=== PATIENT | male | born 1960 | race Two or more races ===

== ENCOUNTER 2020-09-16 09:19 | Inpatient (IN) | payer OTHER ==
[~2020-09-16] VITALS: Ht 167.6 cm; Wt 65.8 kg
--- NOTE | 2020-09-16 09:21 | NUR ---
[email or web address], from home, daughter found him on the floor having seizure, last alcohol drink was yesterday, +oral trauma, to ER bed 13, hooked to fire information officer, BP cuff and POX, changed to hosp gown, warm blanket provided, PATIENT AAO x 3,breathing even and unlabored, NAD noted. Dr Angel at bedside
[2020-09-16] MEDS ORDERED: LORAZEPAM INJ 2 MG/ML VIAL ONE (09:48)
[2020-09-16] MEDS ORDERED: LEVETIRACETAM (500MG) 500 MG in IV NS 0.9% 100 ML IV ONE (10:00)
[2020-09-16] MEDS ORDERED: IV NS 0.9% 1,000 ML BAG IV ONE (10:00)
[2020-09-16] MEDS ORDERED: LORAZEPAM INJ 2 MG/ML VIAL IVP ONE (10:00)
[2020-09-16 10:04] LABS: BASOPHILS % (AUTO) 0.5 % (0.0-2.0); EOSINOPHILS % (AUTO) 0.9 % (0.0-6.0); HEMATOCRIT 40 % (39-51); HEMOGLOBIN 13.3 g/dL (13.5-17.5); LYMPHOCYTES # (AUTO) 0.9 /CMM (0.8-4.8); LYMPHOCYTES % (AUTO) 9.6 % (20.0-44.0); MEAN CORPUSCULAR HGB CONC 34 g/dl (31.0-36.0); MEAN CORPUSCULAR VOLUME 100 fL (80-96); MONOCYTES # (AUTO) 0.6 /CMM (0.1-1.30); MONOCYTES % (AUTO) 6.7 % (2.0-12.0); NEUTROPHILS # (AUTO) 7.9 /CMM (1.8-8.9); NEUTROPHILS % (AUTO) 82.3 % (43.0-81.0); PLATELET COUNT (AUTO) 204 /CMM (150-450); RED BLOOD CELL COUNT(AUTO) 3.97 MIL/uL (4.5-6.0); WHITE BLOOD COUNT (AUTO) 9.6 K/uL (4.3-11.0)
[2020-09-16 10:23] LABS: CALCIUM, SERUM 8.9 mg/dL (8.5-10.1); CREATININE 0.9 mg/dL (0.6-1.3); POTASSIUM 3.9 mmol/L (3.5-5.1)
[2020-09-16 10:30] LABS: ALBUMIN 4.1 g/dL (3.4-5.0); BILIRUBIN,DIRECT 0.3 mg/dL (0.0-0.2); BILIRUBIN,TOTAL 1.1 mg/dL (0.2-1.0); TOTAL PROTEIN, SERUM 8.5 g/dL (6.4-8.2)
--- NOTE | 2020-09-16 11:23 | NUR ---
MOVE SHEET SUBMITTED AND CALLTED FOR TELE BED.
--- NOTE | 2020-09-16 11:45 | NUR ---
pt still unable to provide urine sample at this time. urinal at bedside.
--- NOTE | 2020-09-16 11:46 | NUR ---
Ruth Ann daughter [phone]
--- NOTE | 2020-09-16 12:18 | NUR ---
[facility] CALLED BACK SHOE OPERATOR PAGED.
--- NOTE | 2020-09-16 12:37 | NUR ---
bed 328-1
--- NOTE | 2020-09-16 12:42 | NUR ---
report given to tyree DOTSON for suzan
--- NOTE | 2020-09-16 13:02 | NUR ---
Wheeled patient via gurney accompanied by RN and emt in no distress going to room 328. RN at bedside to assume care.
[2020-09-16 13:15] VITALS: BP 152/80
--- NOTE | 2020-09-16 13:15 | NUR ---
SENIOR ANIMATORNAVAL GUNFIRE SPOTTER NOTE PATIENT ARRIVED BY KARL. PATIENT AMBULATORY TO BED WITH ASSISTANCE. PATIENT IN NO ACUTE DISTRESS. NO SOB NOTED. PATIENT BREATHING IS EVEN AND UNLABORED. PATIENT ON TELE MONITORING READING SINUS RHYTHM HR 80. PATIENT BED ALARM IS ON. PATIENT SAFETY PRECAUTIONS IN PLACE. DIDACTIC PROGRAM IN DIETETICS DIRECTOR PRESENT AND PER PATIENT REFUSES PNEUMONIA AND FLU VACCINES AND USUALLY DOES NOT TAKE VACCINES PER PATIENT. PATIENT BED IS LOCKED AND IN LOWEST POSITION. CALL LIGHT WITHIN REACH. WILL CONTINUE TO MONITOR. JOSEPH BURKETT AWARE OF PATIENT ARRIVAL.
[2020-09-16] MEDS ORDERED: LORAZEPAM INJ 2 MG/ML VIAL IV PRN (13:30)
[2020-09-16] MEDS ORDERED: Z GUARD REMEDY 2 OZ OINT TP PRN (13:30)
[2020-09-16] MEDS ORDERED: ACETAMINOPHEN 325 MG TABLET PO PRN (13:30)
[2020-09-16] MEDS ORDERED: ONDANSETRON HCL/PF 4 MG/2 ML VIAL IVP PRN (13:30)
[2020-09-16 13:50] LABS: BILIRUBIN,URINE NEGATIVE (NEGATIVE); BLOOD, URINE NEGATIVE Ery/uL (NEGATIVE); COLOR,URINE YELLOW (YELLOW); LEUKOCYTE ESTERASE ,URINE NEGATIVE (NEGATIVE); NITRITE, URINE NEGATIVE (NEGATIVE); PROTEIN,URINE NEGATIVE (NEGATIVE); UGLUCOSE NEGATIVE (NEGATIVE); UROBILINOGEN,URINE 0.2 EU/dL (0.2)
[2020-09-16] MEDS: Thiamine 100 MG in IV D5W 50 ML IV SCH (14:13)
[2020-09-16] MEDS: IV D5W 1,000 ML IV PRN (14:13)
[2020-09-16 16:30] VITALS: BP 152/73
--- NOTE | 2020-09-16 19:05 | NUR ---
PIPELINE TECHNICIAN OPENING NOTES RECEIVED PATIENT IN BED AWAKE ALERT AND ORIENTED X4, RESPIRATIONS EVEN AND UNLABORED WITH EQUAL RISE AND FALL OF CHEST, DENIES ANY PAIN OR DISCOMFORT, SEIZURE PRECAUTIONS RENDERED, SAFETY PRECAUTIONS IN PLACE, LOW BED AND LOCKED, ORIENTED TO STAFF AND CALL LIGHT AND KEPT WITHIN REACH, BED ALARM INTACT, NPO STATUS, PATIENT ABLE TO CARRY CONVERSATION, ALL NEEDS ATTENDED AT THIS TIME, WILL CONTINUE TO MONITOR AND ATTEND TO NEEDS.
--- NOTE | 2020-09-16 19:46 | NUR ---
HEALTHCARE MANAGEMENT CONSULTANT NOTE PATIENT IN BED RESTING COMFORTABLY. PATIENT IN NO ACUTE DISTRESS. NO SOB NOTED. PATIENT BREATHING IS EVEN AND UNLABORED. PATIENT ON TELE MONITORING READING SINUS RHYTHM HR 84. PATIENT KEPT CLEAN, DRY, AND COMFORTABLE THROUGHOUT SHIFT. PATIENT BED ALARM IS ON. PATIENT SAFETY PRECAUTIONS IN PLACE. CONTRACT GRAPHIC DESIGNER PRESENT AND PATIENT HAS REFUSED SKIN ASSESSMENT THROUGHOUT SHIFT. EDUCATED RISKS VS BENEFITS. PATIENT BED IS LOCKED AND IN LOWEST POSITION. CALL LIGHT WITHIN REACH. WILL ENDORSE CARE TO PM SHIFT FOR TIANA.
[2020-09-16 20:00] VITALS: BP 160/70
[2020-09-16] MEDS: LEVETIRACETAM (500MG) 500 MG in IV NS 0.9% 100 ML IV SCH (21:04)
[2020-09-17] VITALS: BP 138/81
[2020-09-17 04:00] VITALS: BP 142/70
--- NOTE | 2020-09-17 06:51 | NUR ---
CHARGE ENTRY CLOSING NOTES PATIENT IN BED AWAKE ALERT AND ORIENTED X4, RESPIRATIONS EVEN AND UNLABORED WITH EQUAL RISE AND FALL OF CHEST, DENIES ANY PAIN OR DISCOMFORT, IV SITE TO RIGHT FA #22 G INTACT AND PATENT, DUES MEDS GIVEN ORDERD, PATIENT SLEPT WELL.SEIZURE PRECAUTIONS RENDERED, NO SEIZURE ACTIVITY THIS SHIFT, VS REMAINED WNL.SAFETY PRECAUTIONS IN PLACE, LOW BED AND LOCKED,CALL LIGHT KEPT WITHIN REACH, BED ALARM INTACT, NPO STATUS, PATIENT ABLE TO CARRY CONVERSATION, ALL NEEDS ATTENDED AT THIS TIME, WILL CONTINUE TO MONITOR AND ATTEND TO NEEDS AND ENDORSE TO NEXT SHIFT.
--- NOTE | 2020-09-17 07:30 | NUR ---
RN OPENING NOTE MONGOLIAN SPEAKING TELE PT IN BED AWAKE, A/Ox2, BREATHING ON RA, NO SIGNS OF RESP DISTRESS OR SOB, BREATHING EVEN AND UNLABORED. PT DENIES PAIN OR DISCOMFORT. PT NSR HR 70s. PT USES URINAL AT BEDSIDE. PT HAS RFA #22 WITH IV FLUIDS RUNNING PER MD ORDER. NO SIGNS OF INFILTRATION OR INFECTION. PT TO HAVE SWALLOW EVAL TODAY TO SEE IF WE CAN CHANGE DIET. PT TO HAVE NEURO CONSULT WELL. ALL SAFETY PRECAUTIONS IN PLACE- SR PADDED AND UP x2, BED LOCKED AND IN LOWEST POSITION, BED ALARM ON, CALL LIGHT WITHIN REACH. WILL CONTINUE TO MONITOR
[2020-09-17 07:48] LABS: BASOPHILS % (AUTO) 0.4 % (0.0-2.0); EOSINOPHILS % (AUTO) 2.3 % (0.0-6.0); HEMATOCRIT 38 % (39-51); HEMOGLOBIN 12.8 g/dL (13.5-17.5); LYMPHOCYTES # (AUTO) 1.3 /CMM (0.8-4.8); LYMPHOCYTES % (AUTO) 17.6 % (20.0-44.0); MEAN CORPUSCULAR HGB CONC 34 g/dl (31.0-36.0); MEAN CORPUSCULAR VOLUME 99 fL (80-96); NEUTROPHILS # (AUTO) 4.9 /CMM (1.8-8.9); NEUTROPHILS % (AUTO) 66.7 % (43.0-81.0); PLATELET COUNT (AUTO) 182 /CMM (150-450); RED BLOOD CELL COUNT(AUTO) 3.83 MIL/uL (4.5-6.0); WHITE BLOOD COUNT (AUTO) 7.4 K/uL (4.3-11.0)
[2020-09-17 08:00] VITALS: BP 149/75
[2020-09-17 08:06] LABS: CALCIUM, SERUM 8.6 mg/dL (8.5-10.1); CREATININE 0.6 mg/dL (0.6-1.3); MAGNESIUM 1.6 mg/dL (1.8-2.4); PHOSPHORUS 2.7 mg/dL (2.5-4.9); POTASSIUM 3.6 mmol/L (3.5-5.1)
[2020-09-17 08:17] LABS: THYROID STIMULATING HORMONE 1.025 uIU/mL (0.358-3.74)
[2020-09-17] MEDS: MULTIVITAMINS,THERAGRAN 1 UDTAB TABLET PO SCH ×2 (08:23→08:41)
[2020-09-17] MEDS: FAMOTIDINE/PF INJ 20 MG/2 ML VIAL IV SCH ×2 (08:23→08:41)
--- NOTE | 2020-09-17 10:00 | NUR ---
RN NOTE PER RECONCILING CLERK JOSEPH, OKAY TO CHANGE PT TO CARDIAC DIET
[2020-09-17] MEDS: LEVETIRACETAM (500MG) 500 MG in IV NS 0.9% 100 ML IV SCH ×2 (11:13→22:00)
[2020-09-17] MEDS: IV D5W 1,000 ML IV PRN (11:31)
[2020-09-17 12:00] VITALS: BP 134/75
--- NOTE | 2020-09-17 13:00 | NUR ---
RN NOTE SPOKE TO PT'S DAUGHTER YANETH TO ANSWER QUESTIONS REGARDING PT. ALL QUESTIONS ANSWERED TO PT DAUGHTER'S SATISFACTION
[2020-09-17] MEDS: Thiamine 100 MG in IV D5W 50 ML IV SCH (13:23)
--- NOTE | 2020-09-17 13:30 | NUR ---
RN NOTE NEURO CONSULT DONE BY DR. INIGUEZ
--- NOTE | 2020-09-17 13:36 | NUR ---
House Moving Supervisor consult requested by HAND STEMMER Kyung Chávez for part-time homelessness. Patient is a 59 year-old male. Patient is Setswana speaking and this SW conducted the assessment in Setswana. Patient reports that he lives with his daughter Swati Galindo and her Eugene. Patient informed this SW that he stays with his daughter for some days and other days he is on the street. 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 Patient reports that prior to COVID he was receiving EBT but has not received any for a few months. Patient reports that he has had episodes of seizures in the past while he was living in [place]. Patient reports that he has not been taking medications because he does not have a prescription. Patient denies SI and HI. Patient denies auditory and visual hallucinations. Patient reports alcohol use for several years but patient did not want to elaborate. Patient denies drug and alcohol use. Patient would like to be discharged to self as he would like to return to the streets and living with his daughter. SW assessed community needs regarding this patient. SW offered community resources to this patient and patient accepted. SW had patient sign homeless patient waiver form. Patient was calm and cooperative throughout this assessment. Patient speech was clear. Patient's thought process was clear and concise. SW remains available for all needs regarding this patient. Plan: SW to discuss with interdisciplinary team regarding safe and proper discharge for this patient.
[2020-09-17] MEDS: Magnesium 1GM/D5W 100ML PREMIX 100 ML IV SCH ×2 (14:05→14:52)
[2020-09-17 16:00] VITALS: BP 150/75
--- NOTE | 2020-09-17 19:00 | NUR ---
RN CLOSING NOTE PT RESTING COMFORTABLY IN BED. NO CHANGES IN STATUS TO PT- STABLE. SAFETY PRECAUTIONS IN PLACE- SZ PRECAUTIONS, BED LOCKED AND IN LOWEST POSITION, BED ALARM ON , CALL LIIGHT WITHIN REACH, SR UP AND PADDED x2. WILL ENDORSE TO ONCOMING RN FOR TIANA.
--- NOTE | 2020-09-17 19:50 | NUR ---
FARM IMPLEMENT ENGINE MECHANIC OPENING NOTES RECEIVED PATIENT RESTING IN BED COMFORTABLY; A/OX2, BRAZILIAN SPEAKING; BREATHING EVEN AND UNLABORED; TOLERATING ROOM AIR WELL; NO SOB NOTED; TELE MONITOR READS SINUS RHYTHM 85BPM; R FA # 22 INTACT AND PATENT, TOLERATING IVF WELL; NO S/S OF REDNESS OR INFILTRATION NOTED; SAFETY AND SEIZURE PRECAUTIONS IMPLEMENTED; BED LOCKED IN LOW POSITION; SIDE RAILSX2; CALL LIGHT WITHIN REACH; WILL CONT TO MONITOR
--- NOTE | 2020-09-17 20:30 | NUR ---
GAS PLANT WORKER NOTES PATIENT REFUSED TO OBTAIN VITAL SIGNS; CHARGE NURSE AWARE; WILL CONT TO MONITOR TELE MONITOR READS SINUS RHYTHM 80S
--- NOTE | 2020-09-17 20:55 | NUR ---
MOBILE MARKETING MANAGER NOTES PATIENT VERY AGITATED, ATIVAN GIVEN PER MD ORDER; PATIENT STANDING IN BED; SENIOR CONSTRUCTION MANAGER MD NOTIFIED, PER KINA, HALDOL 2MG IV ONCE AND REPEAT IN 30 MINUTES IT NOT EFFECTIVE; CHARGE NURSE AWARE; HALDOL ADMINISTERED PER MD ORDER; WILL CONT TO MONITOR
[2020-09-17] MEDS ORDERED: HALOPERIDOL LACTATE INJ 5 MG/ML VIAL IM ONE ×2 (22:45→23:30)
[2020-09-18] VITALS: BP 182/88
--- NOTE | 2020-09-18 00:06 | NUR ---
DIRECT MARKETING REPRESENTATIVE NOTES PATIENT STILL AGITATED AND AGGRESSIVE TO STAFF; NURSING VP OF GLOBAL MARKETING MADE AWARE; CHARGE NURSE AWARE; MD NOTIFIED; PER MD, CHANGE ATIVAN 2MG IV Q2HR PRN, ORDERS RECEIVED AND READ BACK; WILL ADMINISTER ATIVAN PER MD ORDER;
[2020-09-18] MEDS ORDERED: LORAZEPAM INJ 2 MG/ML VIAL IV PRN (00:30)
[2020-09-18 04:00] VITALS: BP 156/73
--- NOTE | 2020-09-18 05:20 | NUR ---
WOOD TOOL MAKER NOTES PER EMILEE CASTANON, DLAY FOR SITTER IN AM; CHARGE NURSE AWARE; WILL CONT TO MONITOR
--- NOTE | 2020-09-18 06:31 | NUR ---
PEDIATRIC ACUTE CARE UNIT NURSE CLOSING NOTES PATIENT RESTING IN BED COMFORTABLY; A/OX1-2, CZECH SPEAKING, CONFUSED; BREATHING EVEN AND UNLABORED; TOLERATING ROOM AIR WELL; NO SOB NOTED; TELE MONITOR READS SINUS RHYTHM - SINUS TACHY 115; L FA # 22 INTACT AND PATENT, FLUSHING WELL; NO S/S OF REDNESS OR INFILTRATION NOTED; SAFETY PRECAUTIONS IMPLEMENTED; BED LOCKED IN LOW POSITION; SIDE RAILSX2; CALL LIGHT WITHIN REACH; WILL ENDORSE TIANA TO ONCOMING SHIFT
[2020-09-18 07:34] LABS: BASOPHILS % (AUTO) 0.3 % (0.0-2.0); EOSINOPHILS % (AUTO) 0.1 % (0.0-6.0); HEMATOCRIT 39 % (39-51); HEMOGLOBIN 12.9 g/dL (13.5-17.5); LYMPHOCYTES # (AUTO) 0.9 /CMM (0.8-4.8); LYMPHOCYTES % (AUTO) 5.2 % (20.0-44.0); MEAN CORPUSCULAR HGB CONC 33 g/dl (31.0-36.0); MEAN CORPUSCULAR VOLUME 100 fL (80-96); MONOCYTES # (AUTO) 1.6 /CMM (0.1-1.30); MONOCYTES % (AUTO) 9.8 % (2.0-12.0); NEUTROPHILS # (AUTO) 14.1 /CMM (1.8-8.9); NEUTROPHILS % (AUTO) 84.6 % (43.0-81.0); PLATELET COUNT (AUTO) 190 /CMM (150-450); RED BLOOD CELL COUNT(AUTO) 3.87 MIL/uL (4.5-6.0); WHITE BLOOD COUNT (AUTO) 16.7 K/uL (4.3-11.0)
--- NOTE | 2020-09-18 07:35 | NUR ---
VEHICLE INSPECTOR OPENING NOTES RECEIVED PATIENT AWAKE IN BED WITH 1:1 SITTER AT BEDSIDE. HOB ELEVATED. A/OX2, OCCITAN SPEAKING. ON ROOM AIR, BREATHING EVEN AND UNLABORED. TELE MONITOR SHOWS SR-ST WITH HR 80-110 AT THIS TIME, NO C/O CARDIAC DISTRESS VOICED. IV ACCESS ON L FA # 22 INTACT AND PATENT, IVF INFUSING ORDERED, NO S/S OF REDNESS OR INFILTRATION NOTED AT SITE. SAFETY AND SEIZURE PRECAUTIONS MAINTAINED: BED LOCKED IN LOW POSITION; SIDE RAILS UP X2, BED ALARM ON, CALL LIGHT WITHIN REACH. WILL CONT TO MONITOR PT ACCORDINGLY.
[2020-09-18 08:00] VITALS: BP 145/79
[2020-09-18 08:02] LABS: CALCIUM, SERUM 9.5 mg/dL (8.5-10.1); CREATININE 0.8 mg/dL (0.6-1.3); MAGNESIUM 2.1 mg/dL (1.8-2.4); PHOSPHORUS 1.8 mg/dL (2.5-4.9); POTASSIUM 3.6 mmol/L (3.5-5.1)
[2020-09-18] MEDS: MULTIVITAMINS,THERAGRAN 1 UDTAB TABLET PO SCH (08:39)
[2020-09-18] MEDS: FAMOTIDINE/PF INJ 20 MG/2 ML VIAL IV SCH (08:39)
[2020-09-18] MEDS: THIAMINE HCL 100 MG TABLET PO SCH (08:39)
[2020-09-18] MEDS: LEVETIRACETAM (500MG) 500 MG in IV NS 0.9% 100 ML IV SCH (10:35)
[2020-09-18 12:00] VITALS: BP 152/75
[2020-09-18] MEDS: QUETIAPINE FUMARATE 25 MG TABLET PO SCH ×2 (13:19→16:13)
[2020-09-18 16:00] VITALS: BP 132/81
[2020-09-18] MEDS: FAMOTIDINE (20 MG) 20 MG TABLET PO SCH (16:12)
[2020-09-18] MEDS ORDERED: NEUTRA PHOS 1 POWD.PACKET PO ONE (16:30)
[2020-09-18] MEDS ORDERED: FAMOTIDINE (20 MG) 20 MG TABLET PO SCH (17:00)
--- NOTE | 2020-09-18 18:51 | NUR ---
VASCULAR ULTRASOUND TECHNOLOGIST CLOSING NOTES PATIENT IN BED AWAKE, CLAM AND WATCHING TV AT THIS TIME. HOB ELEVATED. 1:1 SITTER PRESENT AT BEDSIDE. A/OX2, LAO SPEAKING. NOTED RESTLESS ON AND OFF DURING THE DAY. NEEDS ANTICIPATED WELL. ON ROOM AIR, BREATHING EVEN AND UNLABORED. TELE MONITOR SHOWS SR-ST WITH HR 80-110, NO C/O CARDIAC DISTRESS VOICED. IV ACCESS ON L FA # 22 INTACT AND PATENT, IVF INFUSING ORDERED, NO S/S OF REDNESS OR INFILTRATION NOTED AT SITE. SAFETY AND SEIZURE PRECAUTIONS MAINTAINED: BED LOCKED IN LOW POSITION; SIDE RAILS UP X2 AND PADDED, BED ALARM ON, CALL LIGHT WITHIN REACH. WILL ENDORSE TO JUVENILE COURT LIAISON NURSE FOR TIANA.
--- NOTE | 2020-09-18 19:50 | NUR ---
EXPLOSIVE OPERATOR SUPERVISOR OPENING NOTES RECEIVED PATIENT IN BED, AWAKE, RESTLESS/AGITATED BUT EASY TO CALM DOWN; SITTER AT BEDSIDE; PATIENT A/OX1-2, ESTONIAN SPEAKING; TELE READS SINUS RHYTHM - SINUS TACHY; L FA #22 INTACT AND PATENT, FLUSHING WELL; SEIZURE AND SAFETY PRECAUTIONS IMPLEMENTED; BED LOCKED IN LOW POSITION; SIDE RAILSX2; WILL CONT TO MONITOR
[2020-09-18 20:00] VITALS: BP 136/101
[2020-09-18] MEDS: LEVETIRACETAM (250 MG) 250 MG TABLET PO SCH (20:40)
[2020-09-19] VITALS: BP 128/77
--- NOTE | 2020-09-19 02:00 | NUR ---
CRIMP SETTER NOTES PATIENT ASLEEP, SITTER AT BEDSIDE; NO DISTRESS NOTED; WILL CONT TO MONITOR
[2020-09-19 04:00] VITALS: BP 133/75
--- NOTE | 2020-09-19 06:55 | NUR ---
SUPERVISOR BILLPOSTING CLOSING NOTES PATIENT RESTING IN BED COMFORTABLY; A/OX1, CONFUSED, TOGOLESE SPEAKING; SITTER AT BEDSIDE; BREATHING EVEN AND UNLABORED; TOLERATING ROOM AIR WELL; NO SOB NOTED; TELE MONITOR READS SINUS RHYTHM - SINUS TACHY; LFA # 22 INTACT AND PATENT; ALL NEEDS RENDERED; SAFETY PRECAUTIONS IMPLEMENTED; BED LOCKED IN LOW POSITION; SIDE RAILSX2; WILL ENDORSE TIANA TO ONCOMING SHIFT
--- NOTE | 2020-09-19 07:19 | NUR ---
EMAIL MARKETING COORDINATOR OPENING NOTES RECEIVED PATIENT AWAKE IN BED IN NO ACUTE SIGNS OF DISTRESS. 1:1 SITTER AT BEDSIDE. A/OX2, PRYDEINIG SPEAKING. CALM AND QUIET AT THIS TIME. ON ROOM AIR, BREATHING EVEN AND UNLABORED. TELE MONITOR SHOWS SR-ST WITH HR 80-110, NO C/O CARDIAC DISTRESS VOICED. IV ACCESS ON L FA # 22 INTACT AND PATENT, IVF INFUSING ORDERED, NO S/S OF REDNESS OR INFILTRATION NOTED AT SITE. SAFETY AND SEIZURE PRECAUTIONS IN PLACE: BED LOCKED IN LOW POSITION; SIDE RAILS UP X2, BED ALARM ON, CALL LIGHT WITHIN REACH. WILL CONT TO MONITOR PT ACCORDINGLY.
[2020-09-19 08:00] VITALS: BP 114/20
[2020-09-19] MEDS: THIAMINE HCL 100 MG TABLET PO SCH (08:34)
[2020-09-19] MEDS: FAMOTIDINE (20 MG) 20 MG TABLET PO SCH ×2 (08:34→17:32)
[2020-09-19] MEDS: MULTIVITAMINS,THERAGRAN 1 UDTAB TABLET PO SCH (08:35)
[2020-09-19] MEDS: QUETIAPINE FUMARATE 25 MG TABLET PO SCH ×2 (08:35→17:32)
[2020-09-19] MEDS: LEVETIRACETAM (250 MG) 250 MG TABLET PO SCH ×2 (08:35→21:30)
[2020-09-19 08:43] LABS: PHOSPHORUS 4.5 mg/dL (2.5-4.9); POTASSIUM 3.2 mmol/L (3.5-5.1)
[2020-09-19 08:59] LABS: CALCIUM, SERUM 9.6 mg/dL (8.5-10.1); CREATININE 0.8 mg/dL (0.6-1.3)
[2020-09-19] MEDS ORDERED: POTASSIUM CHLORIDE 20 MEQ TAB.PRT.SR PO ONE (09:30)
[2020-09-19 12:00] VITALS: BP 116/76
[2020-09-19 16:00] VITALS: BP 123/72
--- NOTE | 2020-09-19 17:42 | NUR ---
RN NOTES PT NOTED MORE ALERT, VERBALLY RESPONSIVE THAN YESTERDAY. SAME FOLLOWS COMMANDS AND COMPLIANT WITH CARE. REMAINS WITH 1:1 SITTER. ALL DUE MEDS GIVEN ORDERED AND TOLERATED. WILL CONTINUE TO MONITOR.
--- NOTE | 2020-09-19 18:42 | NUR ---
SPECIAL EDUCATION PROFESSOR CLOSING NOTES PATIENT IN BED AWAKE AND WATCHING TV AT THIS TIME. HOB ELEVATED. 1:1 SITTER PRESENT AT BEDSIDE. A/OX2-3, ENGLISH SPEAKING. CALM AND QUIET AT THIS TIME, FOLLOWS COMMANDS. ON ROOM AIR, BREATHING EVEN AND UNLABORED. TELE MONITOR SHOWS SR WITH HR OF 83 AT THIS TIME, NO C/O CARDIAC DISTRESS VOICED. IV ACCESS ON L FA # 22 INTACT AND PATENT, IVF INFUSING ORDERED, NO S/S OF REDNESS OR INFILTRATION NOTED AT SITE. SAFETY AND SEIZURE PRECAUTIONS MAINTAINED: BED LOCKED IN LOW POSITION; SIDE RAILS UP X2 AND PADDED, BED ALARM ON, CALL LIGHT WITHIN REACH. WILL ENDORSE TO OUTPATIENT PHLEBOTOMIST NURSE FOR TIANA.
--- NOTE | 2020-09-19 19:40 | NUR ---
TELE AIRCRAFT FUSELAGE FRAMER INITIAL NOTES. RECEIVED PT IN BED AWAKE AND ALERT WATCHING TV AT THIS TIME CALMED AND COOPERATIVE AT THIS TIME. HE HAVE IVF OF D5W AT 75ML.HR INFUSING ON HIS LFA. DENIES ANY PAIN OR ANY DISCOMFORT. NOT IN ANY DISTRESS NOTED. KEPT HIM WARM AND COMFORTABLE AT ALL TIMES. SITTER AT THE BEDSIDE FOR SAFETY. PLACE CALL LIGHT AT REACH.
[2020-09-19 20:00] VITALS: BP 121/60
[2020-09-20] VITALS: BP 110/59
--- NOTE | 2020-09-20 | NUR ---
tele photo finisher notes pt sleeping comfortably in bed without any acute distress or any episodes of seizure noted . IVf still infusing. tele Sinus Rhythm per monitor. sitter at the bedside for safety behavior. will continue monitoring.
[2020-09-20] MEDS: IV D5W 1,000 ML IV PRN (02:56)
[2020-09-20 04:00] VITALS: BP 109/57
--- NOTE | 2020-09-20 06:41 | NUR ---
tele client experience specialist closing notes pt awake at this time not in any acute distress noted. Denies any pain , slept well and stable throughout the night. calmed and quiet at this time. all due meds given and all needs met. Tele Sr per tele monitor. Vital signs stable and pt still refusing for skin assessment He only request if he's going home today, i spoke to him it the Doctor decision and it depends on his blood work . pt understood well and saying "ok Chris" kept him warm and comfortable at all times. IVF still infusing. sitter at the bedside for safety . will endorse to am nurse for continuity of care. place call light at reach.
[2020-09-20] MEDS: MULTIVITAMINS,THERAGRAN 1 UDTAB TABLET PO SCH (09:05)
[2020-09-20] MEDS: QUETIAPINE FUMARATE 25 MG TABLET PO SCH ×2 (09:05→17:29)
[2020-09-20] MEDS: FAMOTIDINE (20 MG) 20 MG TABLET PO SCH ×2 (09:05→17:28)
[2020-09-20] MEDS: THIAMINE HCL 100 MG TABLET PO SCH (09:06)
[2020-09-20] MEDS: LEVETIRACETAM (250 MG) 250 MG TABLET PO SCH (09:06)
--- NOTE | 2020-09-20 18:30 | NUR ---
PATIENT WAS GIVEN DISCHARGE PAPERS AND INSTRUCTIONS. REMOVED IV SITE NO BLEEDING NOTED. ESCORTED TO THE MAIN LOBBY AND MET WITH DAUGHTER YANETH.
== END 2020-09-20 19:00 | disposition home or self-care (01) | DRG 775 ==
LOC: ER 09:22 → TELE 12:40 → MED 09-20 12:55
PROVIDERS: ADMIT Registered Nurse; ATTEND Nurse Practitioner Acute Care
DX: F10.229 Alcohol dependence with intoxication, unspecified (principal); F10.239 Alcohol dependence with withdrawal, unspecified; E86.0 Dehydration; D53.9 Nutritional anemia, unspecified; R17 Unspecified jaundice; Y90.0 Blood alcohol level of less than 20 mg/100 ml; E87.6 Hypokalemia; Z87.891 Personal history of nicotine dependence; F29 Unspecified psychosis not due to a substance or known physiological condition; Z59.0 Homelessness; R40.2142 Coma scale, eyes open, spontaneous, at arrival to emergency department; R40.2362 Coma scale, best motor response, obeys commands, at arrival to emergency department; R40.2252 Coma scale, best verbal response, oriented, at arrival to emergency department; R53.1 Weakness; G40.509 Epileptic seizures related to external causes, not intractable, without status epilepticus
CPT/HCPCS: 36415; 70450-TC; 71045-TC; 80048-TC; 80061-TC; 80076-TC; 81001; 82962-TC; 83735-TC; 84100-TC; 84443-TC; 85025-TC; 85730-TC; 87081-TC; C9803; G0378; G0480; J1630; J1953; J2060; J3411; J3475; J3490; J7030; J7050; J7060; J7070